=== PATIENT | female | born 1990 | race Two or more races ===

== ENCOUNTER → 2018-01-18 | Emergency (ER) | payer OTHER ==
[~2018-01-18] VITALS: Ht 152.4 cm; Wt 54.4 kg
== END | disposition home or self-care (01) ==
LOC: ER 13:29
DX: N76.0 Acute vaginitis (principal)

== ENCOUNTER → 2018-03-01 | Emergency (ER) | payer OTHER ==
[~2018-03-01] VITALS: Ht 154.9 cm; Wt 54.4 kg
== END | disposition home or self-care (01) ==
LOC: ER 18:21
DX: L73.2 Hidradenitis suppurativa (principal)